=== PATIENT | female | born 1945 | race Two or more races ===

== ENCOUNTER → 2018-05-06 | Day surgery (SDC) | payer OTHER ==
[~2018-05-06] MED LIST: ALTACE10 MG; AMBIEN10 MG; CYMBALTA60 MG; LIPITOR40 MG; NEURONTIN300 MG; SINGULAIR10 MG; ZYRTEC10 M3
== END | disposition home or self-care (01) ==
LOC: ADM 05-02 11:30 → CIR.AMB 06:49
DX: M54.08 Panniculitis affecting regions of neck and back, sacral and sacrococcygeal region (principal)